=== PATIENT | male | born 1970 | race Caucasian/White ===

== ENCOUNTER 2018-01-14 09:35 | Emergency (ER) | payer BC, OTHER ==
[~2018-01-14] VITALS: Ht 180.3 cm; Wt 93.0 kg
--- OUTSIDE RECORDS SUMMARY | 2018-01-14 09:43 | XMS REPORT ---
Author Author VASU CROCKER Organization [employer] Address Unknown Phone Unavailable Care Team Providers Care Quality Control Microbiologist Name Role Phone VASU CROCKER CP Unavailable Allergies No Known Allergies Problems Problem Type Condition Code Onset Dates Condition Status Assessment Testicular injury S39.94XA Active Medications No Known Medications Results No Known Results Summary Purpose [employer] Submission
[2018-01-14] MEDS ORDERED: CARB300C2 (09:52)
[2018-01-14] MEDS ORDERED: LISI10TA2 (09:52)
[2018-01-14] MEDS ORDERED: PRD20T PO (10:15)
[2018-01-14] MEDS ORDERED: CYCL10TA9 PO (10:15)
--- NOTE | 2018-01-14 10:15 | ED Back Pain ---
General Chief Complaint: Back Problems Stated Complaint: LT SHOULDER PAIN Nursing Triage Note: AMB TO ROOM C/O L SCAPULA PAIN AFTER WAKING UP THIS AM TOOK 2 [employer]. THINKS IT MAY BE HELPING. Nursing Sepsis Screen: No Definite Risk Source of Information: Patient Exam Limitations: No Limitations History of Present Illness Date Seen by Provider: Jan 14, 2018 Time Seen by Provider: 09:48 Initial Comments This 47 rolled gentleman presents to the emergency room with pain in the left upper back. He woke with the pain and does not recall any specific injury or strain. He took some Aleve at home which did not improve his pain. His pain is rather positional and seems to be much worse with standing. It feels better if he is sitting and leans forward. He denies any prior episodes. He has no weakness or paresthesias in his arms. Allergies and Home Medications Home Medications Cyclobenzaprine HCl 10 Mg Tablet, 10 MG PO TID Prescribed by: SHREYA STARR on 01/14/18 1015 Prednisone 20 Mg Tab, 1 TAB PO DAILY Prescribed by: SHREYA STARR on 01/14/18 1015 Patient Home Medication List Home Medication List Reviewed: Yes Review of Systems Constitutional: no symptoms reported EENTM: no symptoms reported Respiratory: no symptoms reported Cardiovascular: no symptoms reported Gastrointestinal: no symptoms reported Genitourinary: no symptoms reported Musculoskeletal: see HPI Skin: no symptoms reported Psychiatric/Neurological: No Symptoms Reported Past Pmvkeow-Ibmmfo-[place]bt[place] Hx Past Med/Social Hx: Reviewed and Corrections made Patient Social History Alcohol Use: Occasionally Uses Alcohol Beverage of Choice: Beer Recreational Drug Use: No Smoking Status: Never a Smoker Recent Foreign Travel: No Contact w/Someone Who Travel: No Recent Infectious Disease Expo: No Past Medical History Surgeries: Yes Orthopedic Respiratory: No Cardiac: Yes Hypertension Neurological: Yes Seizure Disorder Reproductive Disorders: No Gastrointestinal: No Musculoskeletal: No Endocrine: No HEENT: No Cancer: No Psychosocial: No Integumentary: No Physical Exam Vital Signs Vital Signs - First Documented 01/14/18 09:42 Temp 97.4 Pulse 82 Resp 18 B/P (MAP) 168/105 (126) Pulse Ox 98 Capillary Refill : Less Than 3 Seconds Height, Weight, BMI Height: 5'11.00" Weight: 205lbs. oz. 92.179459gt; BMI Method:Stated General Appearance: WD/WN, Mild Distress HEENT: PERRL/EOMI, Normal ENT Inspection Neck: Normal Inspection, Non Tender Cardiovascular: Regular Rate, Rhythm, No Edema, No Murmur, Normal Peripheral Pulses Respiratory: Lungs Clear, Normal Breath Sounds, No Accessory Muscle Use, No Respiratory Distress Back: Normal Inspection, No Vertebral Tenderness, Other (mild tenderness in the musculature just medial to the lower left scapula) Extremity: Normal Capillary Refill, Normal Inspection, Normal Range of Motion, Non Tender Neurologic/Psychiatric: Alert, Oriented x3, No Motor/Sensory Deficits, Normal Mood/Affect, clinical trials specialist II-XII Norm as Tested Skin: Normal Color, Warm/Dry Progress/Results/Core Measures Results/Orders Vital Signs/I&O 01/14/18 01/14/18 09:42 10:26 Temp 97.4 97.4 Pulse 82 82 Resp 18 18 B/P (MAP) 168/105 (126) 168/105 (126) Pulse Ox 98 98 Blood Pressure Mean: 126 Progress Progress Note : Progress Note Patient was offered injections of Norflex and Toradol. He is fearful of the injections and declined. He would like to try oral medications. See prescriptions and discharge instructions. Departure Impression Primary Impression: Thoracic back pain Qualified Codes: M54.6 - Pain in thoracic spine Disposition: 01 HOME, SELF-CARE Condition: Stable Departure-Patient Inst. Referrals: THEODORE BARKLEY MD (PCP/Family) Primary Care Physician Patient Instructions: Muscle Spasms (DC), Upper Back Pain (DC) Add. Discharge Instructions: Your pain is likely due to a spasming or strained muscle. Less likely could relate to disc disease in your back. Use ibuprofen up to 600 mg every 6 hours as needed for primary pain control. Add Tylenol (acetaminophen) up to 1000 mg every 6 hours as needed for additional pain relief. You may use cyclobenzaprine (muscle relaxer) as prescribed for spasms. Do not drive or operate machinery while taking this medication. You may use the prednisone steroids as prescribed as well to help reduce inflammation and speed recovery. Take ibuprofen and prednisone with food or milk to avoid irritation on your stomach. Avoid taking prednisone close to bedtime as it may cause jitteriness and disrupt your sleep. Return to care if symptoms worsen. Follow-up with your primary care provider if not improving after a couple of days. Avoid any activities that aggravate your pain. Avoid any strenuous activities until pain resolves. Stay well-hydrated by drinking plenty of water. All discharge instructions reviewed with patient and/or family. Voiced understanding. Scripts Cyclobenzaprine HCl (Cyclobenzaprine HCl) 10 Mg Tablet 10 MG PO TID, #10 TAB Prov: SHREYA ROTHMAN MD 01/14/18 Prednisone (Prednisone) 20 Mg Tab 1 TAB PO DAILY, #4 TAB Prov: SHREYA ROTHMAN MD 01/14/18 SHREYA ROTHMAN MD Jan 14, 2018 10:15
[2018-01-14 10:26] VITALS: BP 168/105
== END 2018-01-14 09:42 | disposition home or self-care (01) ==
LOC: ER 09:39
DX: M54.6 Pain in thoracic spine (principal); I10 Essential (primary) hypertension; G40.909 Epilepsy, unspecified, not intractable, without status epilepticus; Z79.52 Long term (current) use of systemic steroids
CPT/HCPCS: 99281